=== PATIENT | female | born 1990 | race African-American/Black ===

== ENCOUNTER 2018-02-12 18:07 | Emergency (ER) | payer MEDICAID ==
[~2018-02-12] VITALS: Ht 165.1 cm; Wt 47.3 kg
[~2018-02-12 18:07] MED LIST: AMOX500T PO; PREN1TAB30 PO
[2018-02-12 18:18] VITALS: BP 156/86; PULSE 74; RESP 18; TEMP 97.8; O2SAT 99
== END 2018-02-12 20:25 | disposition left against medical advice (07) ==
LOC: NED 18:07
DX: R10.9 Unspecified abdominal pain (principal); Z53.21 Procedure and treatment not carried out due to patient leaving prior to being seen by health care provider
CPT/HCPCS: 99281

== ENCOUNTER 2018-03-29 12:13 | Emergency (ER) | payer MEDICAID ==
--- NOTE | 2018-03-29 13:24 | PD ---
HPI Chief Complaint Pelvic pain and pressure low back pain Date Seen: March 29, 2018 Time Seen: 13:18 Travel History International Travel<30 Days: No Contact w/Intl Traveler<30Days: No Known Affected Area: No History of Present Illness HPI Patient is 28-year-old black female at [address] Benson in [place] who presents claiming of pelvic pain and pressure and low back pain that began about 5 or 6:00 this morning, no bleeding or leakage of fluid, heart tones are in the 150s, no contractions seen, denies yeast vaginal discharge irritation of any kind. 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 11/05/14 Discontinued Scripts Amoxicillin (Amoxicillin) 500 Mg Cap, 1 TAB PO Q8 for 7 Days, CAP Prov:JULITA HAINES M.D. 11/05/14 Review of Systems General / Constitutional: No: Fever, Weight Gain, Chills, Other Eyes: No: Diploplia, Blurred Vision, Visual changes, Pain, Photophobia HENT: No: Headaches, Vertigo, Lightheadedness Cardiovascular: No: Irregular Rhythm, Chest Pain or Discomfort, Palpitations, Tachycardia, Syncope, Varicosities, Edema, Cyanosis Respiratory: No: Cough, Short of Breath, Other Gastrointestinal: Abdominal Pain, No: Nausea, Vomiting, Diarrhea Genitourinary: No: Decreased Urinary Output, Oliguria Musculoskeletal: No: Limited ROM, Weakness, Cramping, Edema, Pain Skin: No Rash, No Itching, No Dryness, No Lumps, No Change in Pigmentation, No Change in Nails, No Alopecia, No Lesions Neurologic: No: Weakness, Dizziness, Syncope, Focal Abnormalities, Coordination Problem, Headache, Slurred Speech, Seizures Psychiatric: No: Depression, Suicidal Ideations, Homicidal Ideation Endocrine: No: Heat Intolerance, Cold Intolerance, Polydipsia, Polyuria, Other Physical Exam Narrative GENERAL: Well-nourished, well-developed patient. SKIN: Warm and dry. HEAD: Normocephalic and atraumatic. EYES: No scleral icterus. No injection or drainage. ENT: No nasal drainage noted. Mucous membranes pink. Airway patent. NECK: Supple, trachea midline. No JVD. CARDIOVASCULAR: Regular rate and rhythm without murmurs, gallops, or rubs. RESPIRATORY: Breath sounds equal bilaterally. No accessory muscle use. BREASTS: Bilateral exam showed no masses , no retractions, no nipple discharge. ABDOMEN/GI: Abdomen soft, non-tender, bowel sounds present, no rebound, no guarding Gravid to [21-] weeks size Fundal Height: [at umb-] GENITOURINARY: External Genitalia: intact and normal in appearance BUS glands: [-] Cervix: [post-] Dilatation: [-0] Effacement: [0-] Station: [-3] Membranes: [intact ] Uterine Contractions: [0-] FHT's: 155 ] EXTREMITIES: No cyanosis or edema. BACK: Nontender without obvious deformity. No CVA tenderness. NEUROLOGICAL: Awake and alert. Motor and sensory grossly within normal limits. Five out of 5 muscle strength in all muscle groups. Normal speech. 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 hydrate, Tylenol p.o., patient to be discharged to bedrest at home and get a work note 48 hours. She is to use oral fluids at home to hydrate, Tylenol as needed, heating pad or hot bath for symptom relief and follow-up with her OB provider Diagnosis Diagnosis: Primary Impression: Pain of round ligament complicating , antepartum Additional Impression: 21 weeks gestation of Disposition: DISCHARGE HOME Condition: Stable Departure Forms: Tests/Procedures, Work Release Enter return to work date: April 01, 2018 Special Instructions: Patient needs bed rest to treat ligament strain in secondary to overactivity Varun Galvez II, MD March 29, 2018 13:24
== END 2018-03-29 14:03 | disposition home or self-care (01) ==
LOC: HOBED 12:13
DX: O26.892 Other specified pregnancy related conditions, second trimester (principal); R10.2 Pelvic and perineal pain; Z3A.21 21 weeks gestation of pregnancy
CPT/HCPCS: 99283